=== PATIENT | female | born 1975 | race Caucasian/White ===

== ENCOUNTER → 2018-02-14 08:40 | Outpatient (CLI) | payer OTHER, SELFPAY ==
[2018-02-14 09:04] LABS: Add Manual Diff / Slide Review NO; Basophils Percent Auto 0.7 % (0-2); Eosinophils Percent Auto 2.9 % (2-4); Lymphocytes Percent Auto 26.6 % (25-40); Mean Corpuscular HGB Conc 33.4 % (30-36); Mean Corpuscular Hemoglobin 29.2 PG (26-34); Mean Corpuscular Volume 87.2 fL (80-100); Monocytes Percent Auto 5.7 % (3-14); Neutrophils Absolute Auto 4300 /uL (3000-5900); Neutrophils Percent Auto 64.1 % (50-75); Platelet Count 353 X10^3/uL (150-400); Red Blood Cell Count 4.47 X10^6/uL (4.0-5.2); Red Cell Distribution Width 15.1 % (11.6-14.8); White Blood Cell Count 6.8 X10^3/uL (4.5-11.0)
[2018-02-14 09:26] LABS: Alanine Aminotransferase 99 IU/L (9-52); Albumin 4.4 g/dL (3.5-5.0); Albumin Globulin Ratio 1.4 (1.0-2.8); Alkaline Phosphatase 63 U/L (38-126); Aspartate Aminotransferase 77 IU/L (14-36); BUN Creatinine Ratio 8.6 (6-22); Bilirubin Total 0.5 mg/dL (0.2-1.3); Blood Urea Nitrogen 6 mg/dL (7-17); Calcium 9.5 mg/dL (8.4-10.2); Carbon Dioxide 27 mmol/L (22-32); Chloride 104 mmol/L (98-107); Cholesterol 187 mg/dL (140-199); Estimated Glomerular Filt Rate > 60.0 mL/min (>60); Globulin 3.2 g/dL (1.7-4.1); Glucose 97 mg/dL (70-100); HDL Cholesterol 42 mg/dL (40-60); HEMOLYSIS < 15 (0-50); LDL Cholesterol Calculated 128 mg/dL (<100); Sodium 143 mmol/L (137-145); Total Protein 7.6 g/dL (6.3-8.2); Triglycerides 87 mg/dL (35-150)
[2018-02-14 10:46] LABS: Thyroid Stimulating Hormone 2.22 uIU/mL (0.47-4.68)
[2018-02-19 19:32] LABS: HEMOLYSIS < 15 (0-50); Iron 62 ug/dL (37-170)
[2018-02-19 19:42] LABS: Percent Iron Saturation 17 % (15-50); Total Iron Binding Capacity 373 ug/dL (265-497); Transferrin 323 mg/dL (206-381)
[2018-02-19 20:08] LABS: Ferritin 43.2 ng/mL (6.27-137)
== END ==
PROVIDERS: Family Provider Internal Medicine; PCP Internal Medicine; Visit Provider Internal Medicine
DX: E03.9 Hypothyroidism, unspecified (principal); E66.01 Morbid (severe) obesity due to excess calories; R53.83 Other fatigue; R79.89 Other specified abnormal findings of blood chemistry; Z68.42 Body mass index [BMI] 45.0-49.9, adult; Z86.39 Personal history of other endocrine, nutritional and metabolic disease
CPT/HCPCS: 36415; 80053; 80061; 82728; 83540; 83550; 84443; 85025

== ENCOUNTER → 2018-02-28 07:08 | Outpatient (CLI) | payer OTHER, SELFPAY ==
[2018-02-28 09:20] LABS: Hepatitis B Surface Antigen NEGATIVE s/c (NEGATIVE)
[2018-02-28 09:26] LABS: Hep C Virus Ab w/Reflex Quant NEGATIVE s/c (NEGATIVE)
[2018-03-01 14:44] LABS: Hepatitis A Antibody Total Nonreactive (Nonreactive); Hepatitis B Core Antibody Nonreactive (Nonreactive)
[2018-03-01 15:51] LABS: Hepatitis B Surf AB Imm QUANT < 5 mIU/mL (> 9)
== END ==
PROVIDERS: PCP Internal Medicine; Visit Provider Internal Medicine
DX: R79.89 Other specified abnormal findings of blood chemistry (principal)
CPT/HCPCS: 36415; 86317; 86704; 86708; 86803; 87340

== ENCOUNTER → 2018-03-29 07:41 | Outpatient (CLI) | payer OTHER, SELFPAY ==
--- NOTE | 2018-03-29 07:41 | DI.MG.S_ITS ---
BILATERAL DIGITAL SCREENING MAMMOGRAM 3D/2D WITH CAD: 03/29/2018 CLINICAL: Routine screening. Family history of breast cancer. Comparison is made to exams dated: 03/20/2016 mammogram, 09/11/2014 mammogram, and 09/08/2013 mammogram - [facility]. There are scattered fibroglandular elements in both breasts. Current study was also evaluated with a Computer Aided Detection (CAD) system. No significant masses, calcifications, or other findings are seen in either breast. There has been no significant interval change. IMPRESSION: NEGATIVE There is no mammographic evidence of malignancy. A 1 year screening mammogram is recommended. This exam was interpreted at Station ID: [id number]. NOTE: For mammograms, a report in lay terms will be sent to the patient. Approximately 15% of breast malignancies will not be visualized mammographically. In the management of a palpable breast mass, a negative mammogram must not discourage biopsy of a clinically suspicious lesion. Electronically Signed By: Camilo rangel/jackie:03/29/2018 16:59:25 letter sent: Normal Exam ACR BI-RADS Category 1: Negative 3341F
== END ==
PROVIDERS: Family Provider Internal Medicine; PCP Internal Medicine; Visit Provider Internal Medicine
DX: Z12.31 Encounter for screening mammogram for malignant neoplasm of breast (principal); Z80.3 Family history of malignant neoplasm of breast; Z68.42 Body mass index [BMI] 45.0-49.9, adult; E66.01 Morbid (severe) obesity due to excess calories; E03.9 Hypothyroidism, unspecified; R79.89 Other specified abnormal findings of blood chemistry; R53.83 Other fatigue; Z86.39 Personal history of other endocrine, nutritional and metabolic disease
CPT/HCPCS: 77063; 77067

== ENCOUNTER 2018-07-08 07:39 | Day surgery (SDC) | payer OTHER, SELFPAY ==
[2018-07-08] VITALS (7 sets, daily range): BP systolic 111–157; BP diastolic 53–93; PULSE 66–75; RESP 15–17; TEMP 36.2–36.8; O2SAT 94–97; BMI 45.9
--- NOTE | 2018-07-08 | PATH_ITS ---
[facility] Accession Number: [id number] . 01 Material submitted: . PART A: TRANSVERSE COLON POLYP AT 60CM PART B: SIGMOID POLYP AT 20CM . 02 Diagnosis: A. Transverse Colon at 60 cm, Polyp: Colonic mucosa with no diagnostic abnormality, consistent with polypoid redundancy. Negative for serrated lesion, dysplasia or malignancy. . B. Sigmoid Colon at 20 cm, Polyp: Tubular adenoma. MRV/07/09/2018 . 02 Electronically signed: . Sage Sands MD, PhD, Pathologist NPI- [id number] . 01 Gross description: . Received two formalin-filled containers both labeled with the patient's name. . A. In a container labeled transverse colon polyp at 60 cm are two 0.2 to 0.5 cm portions of tissue. Entirely submitted in cassette A. B. In a container labeled sigmoid polyp at 20 cm, the specimen consists of a 0.3 cm portion of tissue. Entirely submitted in cassette B. ([facility] [id number]) /[facility] . 02 Pathologist provided ICD-10: D12.5, K63.5 . 02 CPT . 894788, 545795 Performed at: [address] [facility] [address] [facility], [place], [place] [id number] MD Camilo Cristobal MD Phone: [phone] Performed at: 02 [facility] [address] [place], [place] [id number] MD Eden Thorpe MD Phone: [phone]
[2018-07-08] MEDS: SODIUM CHLORIDE 0.9% 1,000 ML 200 ML IV (08:05)
--- NOTE | 2018-07-08 08:21 | SUR.PREOP ---
Patient had a tubal ligatin 16 years ago, hasn't been since. Discussed w/Dr. Macdonald, POC test not done. It was ordered based on her age without knowledge of medical history.
--- NOTE | 2018-07-08 08:52 | PM.HP.1 ---
History of Present Illness Date Patient Seen: 07/08/18 Time Patient Seen: 08:52 Chief complaint: [id number] Narrative: 42-year-old female with personal history of colon polyps who presents today for screening. Last examination was approximately 5 years. On further history she denies any recent gastrointestinal symptoms. No nausea, vomiting, loss of appetite, unexplained weight loss, abdominal pain, change in bowel habits, diarrhea, constipation, melena, hematochezia, or bright red blood per rectum. Patient History Medical History Obstructive sleep apnea of adult (Chronic ~01/2018) Anemia (Chronic) Colon polyps (Chronic ~2006) Depression (Chronic ~2003) Ovarian cyst (Chronic ~1994) Seasonal allergies (Chronic ~2010) Chicken pox (Resolved ~1975) Surgical History Anesthesia (Resolved) Status post delivery (~02/1997) Status post delivery (~12/1998) Status post delivery (~10/2001) Status post cholecystectomy (~04/2000) Family History Father Age: 72 Hypertension Heart attack Grandfather Cancer Mother Age: 71 Colon cancer Thyroid cancer Breast cancer Uterine cancer Grandfather Cancer Sister Age: 47 Mental health problem Depression Sister Age: 45 Cancer Melanoma Grandmother No problems noted. Grandmother No problems noted. Social History marital status: details: to [place] number of children: 4 household members: spouse and children lives independently: Yes caregiver/support person: No housing: house Smoking Status: Never smoker Family & Social History Family History Father Age: 72 Hypertension Heart attack Grandfather Cancer Mother Age: 71 Colon cancer Thyroid cancer Breast cancer Uterine cancer Grandfather Cancer Sister Age: 47 Mental health problem Depression Sister Age: 45 Cancer Melanoma Grandmother No problems noted. Grandmother No problems noted. Social History: household members spouse,children lives independently Yes caregiver/support person No Tobacco & Substance use: Smoking Status Never smoker Meds Home Medications Medication Instructions Recorded Confirmed Type bupropion HCl XL 300 mg 24 hr 300 mg PO QDAY #90 tab 10/29/17 07/08/18 Rx tablet, extended release levothyroxine 88 mcg tablet 88 mcg PO QAM #90 tab 10/29/17 07/08/18 Rx escitalopram 10 mg tablet 10 mg PO DAILY 05/02/18 07/08/18 History Allergies Allergy/AdvReac Type Severity Reaction Status Date / Time Penicillins Allergy Severe Rash Verified 07/08/18 08:25 codeine Allergy Intermediate VOMITING Verified 07/08/18 08:25 penicillin G Allergy Mild RASH Verified 07/08/18 08:25 Review of Systems Review of Systems All systems reviewed & are unremarkable except as noted in HPI and below Exam Vital Signs (past 8 hours): - 07/08/18 08:06 Temperature 97.9 F Pulse Rate 73 Respiratory Rate 15 Blood Pressure 141/86 H Pulse Oximetry 95 Oxygen Delivery Method Room Air Narrative Exam Narrative: Morbidly obese female lying comfortably in the gurney in no acute distress. Alert oriented x3 sclera nonicteric No crackles or wheezes regular rate and rhythm abdomen obese but soft. Nontender. extremities show no clubbing or cyanosis Objective Labs Labs: no recent laboratory or radiographic studies for review Assessment & Plan Assessment & Plan narrative: 42-year-old female personal history of colon polyps. She presents now for screening. Colonoscopy is once again recommended. Risks, benefits, alternatives were explained. Technical details of procedure were discussed. Risks including but not limited to sedation, aspiration, bleeding, pain, missed lesion, incomplete examination, need for further radiographic studies, colonic perforation, need for major abdominal surgery, and all attendant risks of major surgery were discussed in detail. Questions were answered to her satisfaction, and she voiced understanding. Consent was placed on the chart. We will proceed as above.
--- NOTE | 2018-07-08 08:54 | PM.PREOP ---
Pre-operative Note Interval Note History & Physical reviewed/Exam performed by Physician: Yes Changes to H&P: No H&P completed within 30 days and has changed as indicated here:: Patient seen and examined today. History and physical examination documented and placed on the chart. Obviously, no changes in the last 15 min. Proceed with colonoscopy today as planned. ASA Class (for procedural sedation): II
[2018-07-08] MEDS: fentaNYL 250 MCG/5 ML INJ IV (09:18)
[2018-07-08] MEDS: MIDAZOLAM 5 MG/5 ML VIAL IV (09:19)
--- NOTE | 2018-07-08 09:33 | PM.OP.ENDO ---
Operative Date/Time/Diagnoses Date of procedure: 07/08/18 Time of procedure: 09:33 Pre-op diagnosis: 42-year-old female with personal history of colon polyps who presents for screening. Colonoscopy is recommended. Post-op diagnosis: other ( Diverticulosis and colon polyps) Procedure & Clinicians Study performed: 1. Sedation per surgeon 2. Colonoscopy with cold forceps polypectomies Same procedure as scheduled: Yes Indications: 42-year-old female with personal history of colon polyps. Last examination was 3 years ago. colonoscopy recommended for screening purposes currently. Surgeon: Luis Carlos Macdonald Procedure Notes SCOAP/Timeout: yes Procedure in detail: After obtaining informed consent, the patient was brought to the GI suite and placed in the left lateral decubitus position on the examination table. After placement of appropriate monitors, the patient was given incremental doses of Versed and Fentanyl until an appropriate level of sedation was achieved. A time out was held per SCOAP protocol. A digital rectal examination was performed and did not reveal any masses or obstructing lesions. The colonoscope was gently passed into the patient's anus and the entire colon navigated to the level of the cecum with minimal difficulty. Once in the cecum, the scope was withdrawn being sure to go before and beyond all mucosal folds and prominences and get an excellent examination. The findings are noted above. At the level of the rectal vault, the scope was retroflexed and the internal anal canal was examined. The scope was straightened and air aspirated from the colon. The instrument was removed from the patient's body and the procedure was concluded. The patient was allowed to awaken from sedation without difficulty and taken to the post-anesthesia care unit in good condition. Scope withdrawal time: 15:22 min Sedation minutes: 31 Findings: diverticulosis and polyp Specimen(s): other ( 1. Transverse colon polyp at 60 cm 2. Sigmoid polyp at 20 cm) Complications: none Recommendations: Colonscopy in 5 years, High fiber diet and Will call with biopsy results Plan for aftercare: 1. Discharge home Follow up: as needed Disposition: PACU
--- NOTE | 2018-07-08 10:15 | SUR.PHASEII ---
here to pick pt up, d/c instructions discussed, both voiced an understanding, both aware for pt to use cpap today for sleep and naps. Pt dressed when ready to go.
== END 2018-07-08 10:15 | disposition home or self-care (01) ==
PROVIDERS: PCP Internal Medicine; Visit Provider Surgery
PROC: 0DJD8ZZ Inspection of Lower Intestinal Tract, Via Natural or Artificial Opening Endoscopic (ICD-10-PCS; CPT 45378; principal; 2018-07-08 09:45)
DX: Z86.010 Personal history of colon polyps (principal); D12.5 Benign neoplasm of sigmoid colon; D12.3 Benign neoplasm of transverse colon; K57.30 Diverticulosis of large intestine without perforation or abscess without bleeding; G47.33 Obstructive sleep apnea (adult) (pediatric); D64.9 Anemia, unspecified; F32.9 Major depressive disorder, single episode, unspecified; E66.01 Morbid (severe) obesity due to excess calories
CPT/HCPCS: 45380; 99152; 99153; J2250; J3010

== ENCOUNTER → 2018-08-14 07:45 | Outpatient (CLI) | payer OTHER, SELFPAY ==
--- NOTE | 2018-08-14 | DI.US.S_ITS ---
PROCEDURE: US ABDOMEN COMPLETE INDICATIONS: FATTY LIVER DISEASE TECHNIQUE: Real-time scanning was performed of the abdominal and retroperitoneal organs, with image documentation. COMPARISON: [facility], US, ABDOMEN COMPLETE, 09/12/2016, 7:23. [facility], US, ABDOMEN COMPLETE, 03/16/2015, 7:26. FINDINGS: Liver: Liver is mildly enlarged in size at 12.5 cm craniocaudad and homogeneous in echotexture, with moderately severe fatty infiltration throughout. Gallbladder: Surgically absent Biliary ducts: Intrahepatic bile ducts are non-dilated. Extrahepatic bile duct caliber measures 6.7 mm. Normal is 6-7 mm or less in diameter, or 10 mm or less post-cholecystectomy. Pancreas: Visualized portions of the pancreas are sonographically normal. Spleen: Spleen is normal in size and homogeneous in echotexture. Kidneys: Kidneys are normal in size and echotexture. Right kidney measures 12.7 cm long; left kidney measures 12.0 cm long. No hydronephrosis or nephrolithiasis. No solid masses. Aorta: Visualized aorta is normal in caliber at less than 3 cm. Iliacs: Proximal common iliac arteries are normal in caliber at less than 2.5 cm. IVC: Intrahepatic inferior vena cava is patent. Miscellaneous: No free abdominal fluid. IMPRESSION: Moderately severe fatty infiltration throughout the liver which is mildly enlarged. No gallstones or biliary distention is found. No varices or ascites is seen. Dictated by: Abhi Velazquez M.D. on 08/14/2018 at 15:10 Approved by: Abhi Velazquez M.D. on 08/14/2018 at 15:11
== END ==
PROVIDERS: PCP Internal Medicine; Visit Provider Internal Medicine Gastroenterology
DX: K76.0 Fatty (change of) liver, not elsewhere classified (principal); Z90.49 Acquired absence of other specified parts of digestive tract
CPT/HCPCS: 76700

== ENCOUNTER → 2019-05-22 07:04 | Outpatient (CLI) | payer OTHER, SELFPAY ==
[2019-05-22 08:02] LABS: Add Manual Diff / Slide Review NO; Basophils Absolute Auto 100 /uL (0-100); Basophils Percent Auto 0.8 % (0-2); Eosinophils Absolute Auto 100 /uL (0-450); Hematocrit 39.3 % (36-46); Hemoglobin 13.5 g/dL (12.0-16.0); Lymphocytes Absolute Auto 1800 /uL (1100-4500); Mean Corpuscular HGB Conc 34.4 % (30-36); Mean Corpuscular Hemoglobin 30.4 PG (26-34); Mean Corpuscular Volume 88.4 fL (80-100); Monocytes Absolute Auto 500 /uL (0-900); Monocytes Percent Auto 7.3 % (3-14); Neutrophils Absolute Auto 4200 /uL (1500-7000); Neutrophils Percent Auto 62.9 % (50-75); Platelet Count 335 X10^3/uL (150-400); Red Blood Cell Count 4.45 X10^6/uL (4.0-5.2); Red Cell Distribution Width 15.3 % (11.6-14.8); White Blood Cell Count 6.7 X10^3/uL (4.5-11.0)
[2019-05-22 08:09] LABS: Alanine Aminotransferase 89 IU/L (<35); Albumin 4.5 g/dL (3.5-5.0); Albumin Globulin Ratio 1.4 (1.0-2.8); Alkaline Phosphatase 65 U/L (38-126); Aspartate Aminotransferase 63 IU/L (14-36); BUN Creatinine Ratio 12.9 (6-22); Bilirubin Total 0.5 mg/dL (0.2-1.3); Blood Urea Nitrogen 9 mg/dL (7-17); Calcium 9.5 mg/dL (8.4-10.2); Carbon Dioxide 28 mmol/L (22-32); Chloride 103 mmol/L (98-107); Estimated Glomerular Filt Rate > 60.0 mL/min (>60); Globulin 3.3 g/dL (1.7-4.1); Glucose 106 mg/dL (70-100); HEMOLYSIS < 15 (0-50); Potassium 3.8 mmol/L (3.4-5.1); Sodium 140 mmol/L (137-145); Total Protein 7.8 g/dL (6.3-8.2)
[2019-05-25 15:34] LABS: Mitogen-NIL > 10.00 IU/mL; NIL 0.01 IU/mL; QuantiFERON TB NEGATIVE (Negative); TB1-NIL < 0.01 IU/mL; TB2-NIL < 0.01 IU/mL
[2019-05-26 08:33] LABS: Hepatitis A Antibody IgM NONREACTIVE; Hepatitis Acute Panel Interp 0.07; Hepatitis B Core Antibody IgM NONREACTIVE; Hepatitis B Surface Antigen NONREACTIVE; Hepatitis C Antibody NONREACTIVE
== END ==
PROVIDERS: PCP Internal Medicine; Visit Provider Physician Assistant Medical
DX: Z79.899 Other long term (current) drug therapy (principal)
CPT/HCPCS: 36415; 80053; 80074; 85025; 86480

== ENCOUNTER → 2019-06-09 07:20 | Outpatient (CLI) | payer OTHER, SELFPAY ==
[2019-06-09 08:39] LABS: Alanine Aminotransferase 85 IU/L (<35); Aspartate Aminotransferase 67 IU/L (14-36)
== END ==
PROVIDERS: PCP Internal Medicine; Referring Provider Physician Assistant Medical; Visit Provider Physician Assistant Medical
DX: Z79.899 Other long term (current) drug therapy (principal)
CPT/HCPCS: 36415; 84450; 84460

== ENCOUNTER → 2020-01-23 15:16 | Outpatient (CLI) | payer OTHER, SELFPAY ==
[2020-01-23 16:37] LABS: Add Manual Diff / Slide Review NO; Basophils Absolute Auto 100 /uL (0-100); Basophils Percent Auto 0.9 % (0-2); Eosinophils Absolute Auto 200 /uL (0-450); Eosinophils Percent Auto 2.7 % (2-4); Hematocrit 41.2 % (36-46); Lymphocytes Absolute Auto 3200 /uL (1100-4500); Lymphocytes Percent Auto 41.3 % (25-40); Mean Corpuscular HGB Conc 33.9 % (30-36); Mean Corpuscular Hemoglobin 31.2 PG (26-34); Monocytes Absolute Auto 600 /uL (0-900); Monocytes Percent Auto 7.6 % (3-14); Neutrophils Absolute Auto 3600 /uL (1500-7000); Neutrophils Percent Auto 47.5 % (50-75); Platelet Count 283 X10^3/uL (150-400); Red Blood Cell Count 4.48 X10^6/uL (4.0-5.2); White Blood Cell Count 7.7 X10^3/uL (4.5-11.0)
[2020-01-23 16:52] LABS: Alanine Aminotransferase 92 IU/L (<35); Albumin 4.3 g/dL (3.5-5.0); Albumin Globulin Ratio 1.3 (1.0-2.8); Alkaline Phosphatase 57 U/L (38-126); Aspartate Aminotransferase 60 IU/L (14-36); BUN Creatinine Ratio 14.5 (6-22); Bilirubin Total 0.4 mg/dL (0.2-1.3); Blood Urea Nitrogen 9 mg/dL (7-17); Calcium 9.5 mg/dL (8.4-10.2); Carbon Dioxide 28 mmol/L (22-32); Chloride 104 mmol/L (98-107); Estimated Glomerular Filt Rate > 60.0 mL/min (>60); Globulin 3.2 g/dL (1.7-4.1); Glucose 99 mg/dL (70-100); HEMOLYSIS < 15 (0-50); Potassium 3.8 mmol/L (3.4-5.1); Sodium 140 mmol/L (137-145); Total Protein 7.5 g/dL (6.3-8.2)
[2020-01-26 08:10] LABS: QuantiFERON Mitogen Value 7.61 IU/mL (.); QuantiFERON Nil Value 0.09 IU/mL (.); QuantiFERON TB Gold Plus Negative (Negative); QuantiFERON TB1 Ag Value 0.17 IU/mL (.); QuantiFERON TB2 Ag Value 0.07 IU/mL (.)
== END ==
PROVIDERS: PCP Internal Medicine; Referring Provider Physician Assistant Medical; Visit Provider Physician Assistant Medical
DX: L73.2 Hidradenitis suppurativa (principal); L40.0 Psoriasis vulgaris
CPT/HCPCS: 36415; 80053; 85025; 86480

== ENCOUNTER → 2020-01-29 12:42 | Outpatient (CLI) | payer OTHER, SELFPAY ==
--- NOTE | 2020-01-29 12:43 | DI.US.S_ITS ---
PROCEDURE: US ABDOMEN COMPLETE INDICATIONS: ELEVATED LFTS TECHNIQUE: Real-time scanning was performed of the abdominal and retroperitoneal organs, with image documentation. COMPARISON: [facility], , US ABDOMEN COMPLETE, 08/14/2018, 8:00. FINDINGS: Liver: Liver is diffusely increased in echogenicity. No focal hepatic abnormalities identified. Normal hepatic size. Gallbladder: Prior cholecystectomy. Biliary ducts: Intrahepatic bile ducts are non-dilated. Extrahepatic bile duct caliber measures 7.9 mm. Normal is 6-7 mm or less in diameter, or 10 mm or less post-cholecystectomy. Pancreas: Visualized portions of the pancreas are sonographically normal. Spleen: Spleen is normal in size and homogeneous in echotexture. Kidneys: Kidneys are normal in size and echotexture. Right kidney measures 12.3 cm long; left kidney measures 11.1 cm long. No hydronephrosis or nephrolithiasis. No solid masses. Aorta: Visualized aorta is normal in caliber at less than 3 cm. Iliacs: Not visualized IVC: Intrahepatic inferior vena cava is patent. Miscellaneous: No free abdominal fluid. IMPRESSION: 1. Increased hepatic echogenicity noted possibly related to hepatic steatosis but other sources of hepatocellular disease cannot be excluded. Recommend clinical correlation. Dictated by: Eh LLOYD Interpreted: Abhi Velazquez MD on 01/29/2020 at 13:51 Approved by: Abhi Velazquez M.D. on 01/30/2020 at 12:39
== END ==
PROVIDERS: PCP Internal Medicine; Referring Provider Internal Medicine; Visit Provider Internal Medicine
DX: R79.89 Other specified abnormal findings of blood chemistry (principal)
CPT/HCPCS: 76700

== ENCOUNTER → 2020-07-07 08:24 | Outpatient (CLI) | payer OTHER, SELFPAY ==
[2020-07-07] MEDS: COVID-19 VACC, Ad26(JANSSEN)/PF 0.5 ML IM (08:32)
== END ==
PROVIDERS: PCP Internal Medicine; Visit Provider Internal Medicine
DX: Z23 Encounter for immunization (principal)
CPT/HCPCS: 0031A; 91303

== ENCOUNTER → 2020-08-18 07:09 | Outpatient (CLI) | payer OTHER, SELFPAY ==
[2020-08-18 08:02] LABS: Alanine Aminotransferase 82 IU/L (<35); Albumin Globulin Ratio 1.3 (1.0-2.8); Alkaline Phosphatase 58 U/L (38-126); Aspartate Aminotransferase 67 IU/L (14-36); BUN Creatinine Ratio 11.8 (6-22); Bilirubin Total 0.3 mg/dL (0.2-1.3); Blood Urea Nitrogen 6 mg/dL (7-17); Carbon Dioxide 25 mmol/L (22-32); Chloride 107 mmol/L (98-107); Estimated Glomerular Filt Rate > 60.0 mL/min (>60); Globulin 3.1 g/dL (1.7-4.1); Glucose 121 mg/dL (70-100); HEMOLYSIS < 15 (0-50); Potassium 3.8 mmol/L (3.4-5.1); Sodium 138 mmol/L (137-145); Total Protein 7.1 g/dL (6.3-8.2)
== END ==
PROVIDERS: PCP Internal Medicine; Referring Provider Physician Assistant Medical; Visit Provider Physician Assistant Medical
DX: Z79.899 Other long term (current) drug therapy (principal)
CPT/HCPCS: 36415; 80053

== ENCOUNTER → 2020-11-22 15:26 | Outpatient (CLI) | payer OTHER, SELFPAY ==
--- NOTE | 2020-11-22 | DI.MG.S_ITS ---
BILATERAL DIGITAL SCREENING MAMMOGRAM 3D/2D WITH CAD: 11/22/2020 CLINICAL: Routine screening. Family history of breast cancer. Comparison is made to exams dated: 03/29/2018 mammogram, 03/20/2016 mammogram, and 09/11/2014 mammogram - [facility]. There are scattered fibroglandular elements in both breasts. Current study was also evaluated with a Computer Aided Detection (CAD) system. No significant masses, calcifications, or other findings are seen in either breast. There has been no significant interval change. IMPRESSION: NEGATIVE There is no mammographic evidence of malignancy. A 1 year screening mammogram is recommended. This exam was interpreted at Station ID: [id number]. NOTE: For mammograms, a report in lay terms will be sent to the patient. Approximately 15% of breast malignancies will not be visualized mammographically. In the management of a palpable breast mass, a negative mammogram must not discourage biopsy of a clinically suspicious lesion. Electronically Signed By: Ravin Nation M.D., jr/jackie:11/22/2020 15:57:34 letter sent: Normal Exam ACR BI-RADS Category 1: Negative 3341F
== END ==
PROVIDERS: PCP Internal Medicine; Referring Provider Internal Medicine; Visit Provider Internal Medicine
DX: Z12.31 Encounter for screening mammogram for malignant neoplasm of breast (principal); Z80.3 Family history of malignant neoplasm of breast
CPT/HCPCS: 77063; 77067

== ENCOUNTER → 2020-12-01 10:56 | Outpatient (CLI) | payer OTHER, SELFPAY ==
--- NOTE | 2020-12-01 15:17 | DIET.PN ---
Initial Diabetes Assessment Date: 12/01/20 Time: 11a-1245p Dx: Type II Diabetes Provider: Emelia Singh Learning Style: hands-on, listening PMH: ISH, elevated lipids, hypothyroidism, elevated LFTs, insomnia, fatigue, high BMI, Montoya presents today for initial visit regarding newly diagnosed T2DM. FH of DM with maternal grandmother who was on insulin and had h/o amputation. She works at the high school. Her adult children recently all moved out of the house, ?newly empty nesters?. States she was not expecting this diagnosis. 2 years ago she was dx with fatty liver. Recently approved for gastric bypass, which she is very excited about. Meeting with bariatric provider on the . States food does not sound good. States she eats mostly to not be hungry. Some high carb, low protein meals reported. Tells me she does not like vegetables, but upon further discussion she does not like veggies without a topping (ranch, seasoning, dressing, etc). States her discourages eating vegetables with toppings due to ?reduced nutrients? when not eaten in its natural form. This has discouraged her from eating any vegetables. She is tearful today discussing food relationship and her . States her ?controls? most of her life, except what she eats. States he treats her like a child, so she eats like one. Lindsay states she will be attending counseling soon for bariatric sx and is looking forward to it. Has positive hx with counseling. Due for labs this month for HgA1c. Plans to call provider today for apt. Diet Recall: 715a: coffee with creamer (1/4c flavored), zone protein bar or cereal (45-115g CHO) 10a: zone bar and coffee (starbucks frap or creamer) (45-65g CHO) 330-4p: cereal (70-115g CHO) 8p: cereal or bag of popcorn (30-115g CHO) Beverages: 64oz water, sweetened coffee beverages, cut out soda this summer Anthropometrics: Ht: 70? Wt: 342# Physical Activity: 20 min walking q other day. Barrier: back pain (seeing chiropractor) Self-Monitoring Blood Glucose: Interested in checking blood sugars. Discussed she may not have been rx?d a monitor since her HgA1c was barely above 6.5%, but she is interested in seeing trends. Encouraged her to discuss with provider. She would need an rx for meter and supplies to check no more than once per day. Labs: HgA1c: 6.7% Diabetes Medications: Montoya interested in XR metformin because sometimes hard to remember to take BID. Currently taking ? 500 mg Metformin BID. Denies SE. Nutrition Rx: Carbohydrates: Daily: 200 g Meal: 45-60g Snack: 15-30g Nutrition Diagnosis: - Excessive carbohydrate intake r/t nutrition knowledge deficit in carb counting aeb diet recall >60g at some meals - Inadequate fiber intake r/t not preferring vegetables without herbs/spices/sauces aeb pt report/diet recall Intervention: Provided evidence based medical nutrition therapy for type II diabetes. This participant was very receptive. Provided appropriate educational handouts. Discussed the following topics: - Completed intake assessment. Discussed barriers to care. - Reviewed HgA1c and its correlation to blood glucose numbers. - Pathophysiology of T2DM - Self-monitoring blood sugars as a tool prn - Created SMART goals for pt self-care and success. - Plate Method, meal timing, carb counting, pairing macronutrients and spreading out CHO for better BG mgmnt - Impact of macronutrients on BG - Rec servings for CHO at meals and snacks - Brainstormed appropriate meal plan based on her food preferences - Relationship to food and finding ways to enjoy balanced meals - Role of physical activity on blood sugars - Choosing lean proteins Goals: - Try SF creamer in coffee - Explore vegetables with toppings (ie salad with low carb dressing) - Walk 30 min q other day Follow-up: MARJORIE GAINES follow-up in 2-3 weeks Maria Isabel Rizvi RDN, EDER Certified Diabetes Care and Energy Efficiency Specialist
== END ==
PROVIDERS: PCP Internal Medicine; Referring Provider Internal Medicine; Visit Provider Internal Medicine
DX: E11.9 Type 2 diabetes mellitus without complications (principal)
CPT/HCPCS: 97802

== ENCOUNTER → 2020-12-22 14:56 | Outpatient (CLI) | payer OTHER, SELFPAY ==
--- NOTE | 2020-12-22 16:29 | DIET.PN1 ---
Follow-up MNT Diabetes Assessment Date: 12/22/20 Time: 3-410p Dx: Type II Diabetes Provider: Emelia Preferred Learning Style: hands-on, listening PMH: ISH, elevated lipids, hypothyroidism, elevated LFTs, insomnia, fatigue, high BMI, Lindsay presents today for follow-up visit regarding newly diagnosed T2DM. Plans to get lab work, new HgA1c tomorrow. Taking Metformin as rx'd, but has not requested XR option. Has increased vegetable intake as discussed, adding protein to meals and snacks, and being consistent with walking. Completed her bariatric initial visit with team. Plans to see RD starting next month via zoom. Has questions about RYGB vs sleeve. Has concerns about stress eating. Not seeing counselor yet. Endorses over consumption of CHO yesterday afternoon after trying to avoid eating a donut at work. This resulted in eating two donuts quickly (feeling guilty per her report) and multiple snacks after. Avoiding HS snack, despite hunger. Having smaller bowls of cereal, paired with protein. Looking for protein cereals discussed last visit. Plans to look online or Maurisio Blanco. Anthropometrics: Ht: 70? Wt: 336# Physical Activity: 20 min walking q other day. Barrier: back pain (seeing chiropractor). Has not inc to 30 min. Amenable to trying to increase activity earlier in the day. usual 20 min walk is at 6p. Self-Monitoring Blood Glucose: Interested in checking blood sugars. Reinforced she may not have been rx?d a monitor since her HgA1c was barely above 6.5%, but she is interested in seeing trends. Encouraged her to discuss with provider. She would need an rx for meter and supplies to check no more than once per day. Labs: HgA1c: 6.7% Diabetes Medications: Lindsay interested in XR metformin because sometimes hard to remember to take BID. Currently taking ? 500 mg Metformin BID. Denies SE. Nutrition Rx: Carbohydrates: Daily: 200 g Meal: 45-60g Snack: 15-30g Nutrition Diagnosis: - Excessive carbohydrate intake r/t nutrition knowledge deficit in carb counting aeb diet recall >60g at some meals- improved - Inadequate fiber intake r/t not preferring vegetables without herbs/spices/sauces aeb pt report/diet recall- improved Intervention: Provided evidence based medical nutrition therapy for type II diabetes. This participant was very receptive. Provided appropriate educational handouts. Discussed the following topics: - Hunger/fullness and mindful eating - Moderation in portions and avoiding complete abstinence from foods that then result in binge-like behaviors - Ways to increase phys activity in her day - Meal timing - Small/freq meals for DM mgmnt and post bariatric sx - Reduced commodities and weight percentages with both surgery options - Stress mgmgnt - Goals: - Try SF creamer in coffee- met - Explore vegetables with toppings (ie salad with low carb dressing)- met - Walk 30 min q other day - not met - Walk 5-10 min q day at work, in addition to 20 min q other day at home- new - Plan balanced HS snack- new - Discuss potential for Metformin XR with provider prn- new - Practice mindfulness with food cravings- new Follow-up: MARJORIE GAINES follow-up prn. Lindsay will see bariatric RD starting next month. She was provided my business card and encouraged to call or message with follow-up needs prn. Maria Isabel Rizvi, MARJORIE, EDER Certified Diabetes Care and Ceramics Artist
== END ==
PROVIDERS: PCP Internal Medicine; Referring Provider Internal Medicine; Visit Provider Internal Medicine
DX: E11.9 Type 2 diabetes mellitus without complications (principal); Z71.3 Dietary counseling and surveillance; Z79.84 Long term (current) use of oral hypoglycemic drugs; E66.9 Obesity, unspecified; Z68.42 Body mass index [BMI] 45.0-49.9, adult
CPT/HCPCS: 97803

== ENCOUNTER → 2021-12-08 13:48 | Outpatient (CLI) | payer OTHER, SELFPAY ==
--- NOTE | 2021-12-08 | DI.MG.S_ITS ---
BILATERAL DIGITAL SCREENING MAMMOGRAM 3D/2D WITH CAD: 12/08/2021 CLINICAL: Routine screening. Family history of breast cancer. Comparison is made to exams dated: 11/22/2020 mammogram, 03/29/2018 mammogram, and 03/20/2016 mammogram - [facility]. There are scattered fibroglandular elements in both breasts. Current study was also evaluated with a Computer Aided Detection (CAD) system. No significant masses, calcifications, or other findings are seen in either breast. There has been no significant interval change. IMPRESSION: NEGATIVE There is no mammographic evidence of malignancy. A 1 year screening mammogram is recommended. This exam was interpreted at Station ID: [id number]. NOTE: For mammograms, a report in lay terms will be sent to the patient. Approximately 15% of breast malignancies will not be visualized mammographically. In the management of a palpable breast mass, a negative mammogram must not discourage biopsy of a clinically suspicious lesion. Electronically Signed By: Anders Sigala acr/penrad:12/08/2021 15:50:46 letter sent: Normal Exam ACR BI-RADS Category 1: Negative 3341F
== END ==
PROVIDERS: PCP Internal Medicine; Referring Provider Internal Medicine; Visit Provider Internal Medicine
DX: Z12.31 Encounter for screening mammogram for malignant neoplasm of breast (principal); Z80.3 Family history of malignant neoplasm of breast
CPT/HCPCS: 77063; 77067

== ENCOUNTER → 2023-02-19 07:45 | Outpatient (CLI) | payer OTHER, SELFPAY ==
--- NOTE | 2023-02-19 | DI.MG.S_ITS ---
BILATERAL DIGITAL SCREENING MAMMOGRAM 3D/2D WITH CAD: 02/19/2023 CLINICAL: Routine screening. Family history of breast cancer. Comparison is made to exams dated: 12/08/2021 mammogram, 11/22/2020 mammogram, and 03/29/2018 mammogram - [facility]. There are scattered areas of fibroglandular density in both breasts (category b / 25%-50% glandular tissue). Current study was also evaluated with a Computer Aided Detection (CAD) system. No significant masses, calcifications, or other findings are seen in either breast. There has been no significant interval change. IMPRESSION: NEGATIVE There is no mammographic evidence of malignancy. A 1 year screening mammogram is recommended. Based on the Tyrer Cuzick model (a risk assessment model) the patient's lifetime risk is 17.2% and her 10 year risk is 3.8%. According to the ACR, ACS, and NCCN guidelines, an annual breast MRI exam along with mammogram is recommended if the patient's lifetime risk is 20% or greater. This exam was interpreted at Station ID: [id number]. NOTE: For mammograms, a report in lay terms will be sent to the patient. Approximately 15% of breast malignancies will not be visualized mammographically. In the management of a palpable breast mass, a negative mammogram must not discourage biopsy of a clinically suspicious lesion. Electronically Signed By: Leighton carranza/jackie:02/19/2023 18:16:02 letter sent: Normal Exam ACR BI-RADS Category 1: Negative 3341F
== END ==
PROVIDERS: PCP Internal Medicine; Referring Provider Internal Medicine; Visit Provider Internal Medicine
DX: Z12.31 Encounter for screening mammogram for malignant neoplasm of breast (principal); Z80.3 Family history of malignant neoplasm of breast
CPT/HCPCS: 77063; 77067

== ENCOUNTER → 2024-04-07 15:56 | Outpatient (CLI) | payer OTHER, SELFPAY ==
--- NOTE | 2024-04-07 15:57 | DI.MG.S_ITS ---
BILATERAL DIGITAL SCREENING MAMMOGRAM 3D/2D WITH CAD: 04/07/2024 CLINICAL: Routine screening. Family history of breast cancer. Comparison is made to exams dated: 02/19/2023 mammogram, 12/08/2021 mammogram, and 11/22/2020 mammogram - [facility]. There are scattered areas of fibroglandular density (category b / 25%-50% glandular tissue). Current study was also evaluated with a Computer Aided Detection (CAD) system. No significant masses, calcifications, or other findings are seen in either breast. There has been no significant interval change. IMPRESSION: NEGATIVE There is no mammographic evidence of malignancy. A 1 year screening mammogram is recommended. Based on the Tyrer Cuzick model (a risk assessment model) the patient's lifetime risk is 17.1% and her 10 year risk is 3.9%. According to the ACR, ACS, and NCCN guidelines, an annual breast MRI exam along with mammogram is recommended if the patient's lifetime risk is 20% or greater. This exam was interpreted at Station ID: [id number]. NOTE: For mammograms, a report in lay terms will be sent to the patient. Approximately 15% of breast malignancies will not be visualized mammographically. In the management of a palpable breast mass, a negative mammogram must not discourage biopsy of a clinically suspicious lesion. Electronically Signed By: Freddy arias/jackie:04/08/2024 10:21:26 letter sent: Normal Exam ACR BI-RADS Category 1: Negative
== END ==
LOC: MAMMO 15:57
PROVIDERS: PCP Internal Medicine; Referring Provider Internal Medicine; Visit Provider Internal Medicine
DX: Z12.31 Encounter for screening mammogram for malignant neoplasm of breast (principal); Z80.3 Family history of malignant neoplasm of breast
CPT/HCPCS: 77063; 77067

== ENCOUNTER 2024-05-09 07:09 | Day surgery (SDC) | payer OTHER, SELFPAY ==
--- NOTE | 2024-05-09 | PATH_ITS ---
[facility] Accession Number: [id number] No. of containers..01 Tissue . 01 Material submitted: . rectum - RECTAL POLYP . 01 Diagnosis: RECTAL POLYP: Hyperplastic polyp. PHUONG 05/12/2024 1111 Local . 01 Electronically signed: . Ashwini Goldstein MD, Pathologist NPI- [id number] . 01 Gross description: . Received in formalin with two patient identifiers and rectal polyp, are multiple jensen soft tissue fragments aggregating to 0.8 x 0.4 x 0.2 cm. Filtered and submitted in cassette A1. ([id number]) /PHUONG 05/10/2024 2355 Local . 01 Pathologist provided ICD-10: D12.8 . 01 CPT . 795457 Specimen Comment: A courtesy copy of this report has been sent to [facility] Pathology Performed at: [address] [facility] [address] [address], [place], [place] [id number] MD Camilo Cristobal MD Phone: [phone]
[2024-05-09 07:38] VITALS: BP 103/63; PULSE 64; RESP 16; TEMP 36.8; O2SAT 99
[2024-05-09] MEDS: SODIUM CHLORIDE 0.9% 1,000 ML 84 ML IV (07:40)
--- NOTE | 2024-05-09 08:05 | P.HP_ITS ---
History of Present Illness History of Present Illness Date Patient Seen: 05/09/24 Time Patient Seen: 08:05 Chief complaint: SDC Narrative: Family history colon cancer, father in his 40s, multiple previous colonoscopies with polyps at every colonoscopy according to the patient. [facility] Medical History (Updated 05/09/24 @ 08:06 by Gonzales Callahan MD) Personal history of colonic polyps Obstructive sleep apnea of adult (~01/2018) Seasonal allergies (~2010) Depression (~2003) Chicken pox (~1975) Anemia Ovarian cyst (~1994) Colon polyps (~2006) Fatigue (08/29/16) Insomnia (11/22/15) Surgical History Anesthesia Status post cholecystectomy (~04/2000) Status post delivery (~10/2001) Status post delivery (~12/1998) Status post delivery (~02/1997) Family History Father Age: 78 Hypertension Heart attack Grandfather Cancer Mother Age: 77 Colon cancer Thyroid cancer Breast cancer Uterine cancer Grandfather Cancer Sister Age: 53 Mental health problem Depression Sister Age: 51 Cancer Melanoma Grandmother No problems noted. Grandmother No problems noted. Social History marital status: details: to [place] number of children: 4 household members: spouse and children lives independently: Yes caregiver/support person: No housing: house Smoking Status: Never smoker alcohol intake: current Meds Home Medications and Allergies Home Medications Medication Instructions Recorded Confirmed Type bupropion HCl 300 mg 24 hr tablet, 300 mg PO QDAY #90 tabs 10/29/17 11/03/21 Rx extended release levothyroxine 88 mcg tablet 88 mcg PO QAM #90 tabs 10/29/17 05/09/24 Rx escitalopram oxalate 10 mg tablet 10 mg PO DAILY 05/02/18 11/03/21 History (Lexapro) Respironics DreamStation CPAP #1 ea 07/10/18 11/03/21 History adalimumab 40 mg/0.8 mL 40 mg SUBCUT QWEEK 11/03/21 11/03/21 History subcutaneous syringe kit (Humira) metformin 500 mg tablet 500 mg PO BID 05/09/24 05/09/24 History propranolol 10 mg tablet 10 mg PO 3XD 05/09/24 05/09/24 History Allergies Allergy/AdvReac Type Severity Reaction Status Date / Time Penicillins Allergy Severe Rash Verified 05/09/24 07:25 penicillin G Allergy Mild RASH Verified 05/09/24 07:25 codeine AdvReac Intermediate VOMITING Verified 05/09/24 07:43 Review of Systems Review of Systems ROS: Yes All systems reviewed with the patient and are negative except as otherwise documented Exam Vital Signs (past 8 hours): - 05/09/24 07:38 Temperature 98.3 F Pulse Rate 64 Respiratory Rate 16 Blood Pressure 103/63 Pulse Oximetry 99 Oxygen Delivery Method Room Air Oxygen Delivery Method Room Air Narrative Exam Narrative: Gen: NAD, sitting comfortably in bed, appears well HEENT: Sclera are anicteric, head is normocephalic and atraumatic, trachea is midline. CV: RRR, no JVD Resp: clear to auscultation bilaterally, equal chest wall movement bilaterally Abd: soft, nontender, normoactive bowel sounds Ext: no edema, full range of motion Neuro: Cranial nerves II-XII grossly intact, no focal deficits Skin: No erythema or ecchymosis Assessment & Plan Assessment and plan (1) Personal history of colonic polyps: Status: Acute Assessment & Plan narrative: Patient presents for colonoscopy Risks, benefits, alternatives to colonoscopy explained, including but not limited to bowel perforation or other serious complication requiring surgery at less than 1 in 5000 colonoscopies, abdominal pain, cramping or bleeding and less than 1% of colonoscopies, and the chances that we find a diagnosis that would require further intervention of about 2%. Patient agrees to proceed. Time-Based Coding :: [TOTAL MINUTES] spent with patient and on the chart (including review of chart, obtaining history, exam, reviewing outside data, placing orders, documenting exam and treatment plan, and counseling patient) on [DATE].
--- NOTE | 2024-05-09 08:29 | PM.OP.COLON ---
Operative Date/Time/Diagnoses Date of procedure: 05/09/24 Time of procedure: 08:31 Pre-op diagnosis: Personal history of polyps, family history of colon cancer Post-op diagnosis: same Procedure & Clinicians Study performed: Colonoscopy with cold snare polypectomy rectal polyp Same procedure as scheduled: Yes Indications: Personal history of polyps Surgeon: Gonzales Callahan Procedure Notes SCOAP/Timeout: Performed Procedure in detail: Time-out was performed. Mac was induced. Patient was placed in left lateral decubitus position. The perineum was inspected without any gross abnormality. Lubricated pediatric colonoscope was inserted and advanced to the cecum. The terminal ileum was intubated. The colonoscope was withdrawn slowly inspecting the circumference of the colon. Very small polyps may have been missed, prep quality was adequate. Likely hyperplastic rectal polyp was removed with cold snare, less than 10 mm in size. Retrieved. Retroflexed view of the rectum showed small, non prolapsed nonbleeding internal hemorrhoids. The scope was withdrawn the patient was taken to PACU in good condition. Scope withdrawal time: 12 Sedation minutes: 19 Findings: polyp(s) Specimen(s): other (Rectal polyp) Complications: none Impression: Benign-appearing polyp Post-procedure Recommendations: Colonoscopy in 5 years Follow up: as needed Disposition: PACU
[2024-05-09 08:32] VITALS: BP 92/49; PULSE 55; RESP 13; TEMP 36.1; O2SAT 100
[2024-05-09 08:37] VITALS: BP 102/54; PULSE 55; RESP 18; O2SAT 100
[2024-05-09 08:42] VITALS: BP 86/44; PULSE 51; RESP 17; O2SAT 100
[2024-05-09 08:47] VITALS: BP 96/58; PULSE 57; RESP 6; O2SAT 100
[2024-05-09 09:09] VITALS: BP 103/72; PULSE 68; RESP 16; O2SAT 99
== END 2024-05-09 09:13 | disposition home or self-care (01) ==
PROVIDERS: PCP Internal Medicine; Referring Provider Surgery; Visit Provider Surgery
PROC: 0DJD8ZZ Inspection of Lower Intestinal Tract, Via Natural or Artificial Opening Endoscopic (ICD-10-PCS; CPT 45378; principal; 2024-05-09 08:15)
DX: Z12.11 Encounter for screening for malignant neoplasm of colon (principal); Z86.0100 Personal history of colon polyps, unspecified; K62.1 Rectal polyp; K64.8 Other hemorrhoids; E11.9 Type 2 diabetes mellitus without complications; Z79.84 Long term (current) use of oral hypoglycemic drugs; E03.9 Hypothyroidism, unspecified; Z98.84 Bariatric surgery status; Z80.0 Family history of malignant neoplasm of digestive organs
CPT/HCPCS: 45385; J2704